=== PATIENT | male | born 1990 | race Caucasian/White ===

== ENCOUNTER 2016-05-28 17:14 | Emergency (ER) | payer MEDICAID ==
[2016-05-28] MEDS ORDERED: NICOTINE 21 MG PATC TD SCH (20:00)
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
[2016-05-28] MEDS ORDERED: NICOTINE 21 MG PATC TD ONE (21:07)
[2016-05-28 21:53] VITALS: BP 119/87
== END 2016-05-28 21:53 ==
LOC: ER 17:14
DX: S00.93XA Contusion of unspecified part of head, initial encounter (principal); S40.011A Contusion of right shoulder, initial encounter; S63.601A Unspecified sprain of right thumb, initial encounter; S60.022A Contusion of left index finger without damage to nail, initial encounter; M25.531 Pain in right wrist; Y08.89XA Assault by other specified means, initial encounter; F17.210 Nicotine dependence, cigarettes, uncomplicated